=== PATIENT | female | born 1970 ===

== ENCOUNTER 2016-05-19 15:48 | Emergency (ER) | payer OTHER ==
[2016-05-19 15:56] VITALS: BP 137/93; PULSE 81; RESP 18; TEMP 97.7; O2SAT 98
--- NOTE | 2016-05-19 16:41 | ED PDOC ---
HPI: Back Time Seen by Provider: 05/19/16 16:29 Chief Complaint (Nursing): Back Pain Chief Complaint (Provider): Back Pain History Per: Patient History/Exam Limitations: no limitations Onset/Duration Of Symptoms: Days Current Symptoms Are (Timing): Still Present Quality Of Discomfort: "Pain" Severity: Mild Associated Symptoms: None Additional Complaint(s): Patient is a 45 year old female who presents to ED for back pain for 3 months. Patient states that the back pain radiates to the front, upper her chest into her head and out of her nose. Patient denies recent trauma, chest pain, SOB, abdominal pain, fever or chills. Patient denies SI or HI Past Medical History Reviewed: Historical Data, Nursing Documentation, Vital Signs Vital Signs: Last Vital Signs Temp 97.7 F 05/19/16 15:52 Pulse 81 05/19/16 15:52 Resp 18 05/19/16 15:52 BP 137/93 H 05/19/16 15:52 Pulse Ox 98 05/19/16 15:52 - Medical History PMH: No Chronic Diseases - Surgical History Surgical History: No Surg Hx - Family History Family History: States: Unknown Family Hx - Home Medications Home Medications: Ambulatory Orders Medication Instructions Recorded Naproxen [Naprosyn] 500 mg PO Q12H #20 tab 05/19/16 - Allergies Allergies/Adverse Reactions: Allergies Allergy/AdvReac Type Severity Reaction Status Date / Time No Known Allergies Allergy Verified 05/19/16 15:52 Review of Systems ROS Statement: Except As Marked, All Systems Reviewed And Found Negative Constitutional: Negative for: Fever, Weakness Cardiovascular: Negative for: Chest Pain, Palpitations Respiratory: Negative for: Shortness of Breath Gastrointestinal: Negative for: Nausea, Vomiting, Abdominal Pain Musculoskeletal: Positive for: Back Pain Physical Exam - Reviewed Nursing Documentation Reviewed: Yes Vital Signs Reviewed: Yes - Physical Exam Appears: Positive for: Non-toxic, No Acute Distress Skin: Positive for: Normal Color, Warm Eye Exam: Positive for: Normal appearance Neck: Positive for: Normal, Painless ROM Cardiovascular/Chest: Positive for: Regular Rate, Rhythm. Negative for: Murmur Respiratory: Positive for: Normal Breath Sounds. Negative for: Respiratory Distress Back: Positive for: Normal Inspection. Negative for: Vertebral Tenderness, Muscle Spasm Extremity: Positive for: Normal ROM. Negative for: Pedal Edema Neurologic/Psych: Positive for: Alert, Oriented, Mood/Affect (Bizarre affect ) - ECG O2 Sat by Pulse Oximetry: 98 (RA) Pulse Ox Interpretation: Normal Medical Decision Making Medical Decision Making: Time: 163 Initial impression: Back pain r/o psychiatric involvement Initial plan: -- Crisis evaluation Scribe Attestation: Documented by Delilah Fitzgerald acting as a scribe for Shravan Damian MD MD Scribe Attestation: All medical record entries made by the Scribe were at my direction and personally dictated by me. I have reviewed the chart and agree that the record accurately reflects my personal performance of the history, physical exam, medical decision making, and the department course for this patient. I have also personally directed, reviewed, and agree with the discharge instructions and disposition. Disposition - Clinical Impression Clinical Impression: Low back pain, Schizoaffective disorder - Patient ED Disposition Is Patient to be Admitted: No - Disposition Disposition: Routine/Home Disposition Time: 18:02 Condition: FAIR Prescriptions: Naproxen [Naprosyn] 500 mg PO Q12H #20 tab Instructions: Back Pain (ED), Schizoaffective Disorder (ED)
--- NOTE | 2016-05-20 09:12 | RAD ---
PROCEDURE: Radiographs of the Lumbar Spine. HISTORY: pain COMPARISON: No prior. FINDINGS: BONES: Normal alignment. No listhesis. No fracture. DISC SPACES: Unremarkable. OTHER FINDINGS: Right upper quadrant calcification projects over L1 vertebra in the lateral projection. Possible gallstone. IMPRESSION: Unremarkable lumbar spine. Possible cholelithiasis.
== END 2016-05-19 18:30 | disposition home or self-care (01) ==
LOC: H.ER 15:48
DX: M54.5 Low back pain (principal); F25.9 Schizoaffective disorder, unspecified

== ENCOUNTER 2016-05-22 08:49 | Inpatient (IN) | payer MEDICAID, OTHER ==
--- NOTE | 2016-05-22 09:39 | ED PDOC ---
HPI: Psych/Substance Abuse Time Seen by Provider: 05/22/16 09:22 Chief Complaint (Nursing): Psychiatric Evaluation Chief Complaint (Provider): Psychiatric Evaluation History Per: Patient History/Exam Limitations: no limitations Onset/Duration Of Symptoms: Days Current Symptoms Are (Timing): Still Present Suicide/Self Injury Attempted (Context): None Modifying Factor(s): None Associated Symptoms: Paranoia Involuntary Hold By: None Additional Complaint(s): Patient is a 45 year old female who presents to ED for evaluation of hearing voices. Patient states that she is hearing voices that angels are evil and feels like they are coming out of her mouth and nose. Denies SI or HI. Past Medical History Reviewed: Historical Data, Nursing Documentation, Vital Signs Vital Signs: Last Vital Signs Temp 98.4 F 05/22/16 09:03 Pulse 100 H 05/22/16 09:03 Resp 20 05/22/16 09:03 BP 160/100 H 05/22/16 09:03 Pulse Ox 99 05/22/16 09:03 - Medical History PMH: No Chronic Diseases Denies: Diabetes, Hepatitis, HIV, HTN, Seizures, Sexually Transmitted Disease - Surgical History Surgical History: No Surg Hx - Family History Family History: States: Unknown Family Hx - Home Medications Home Medications: Ambulatory Orders Medication Instructions Recorded Naproxen [Naprosyn] 500 mg PO Q12H #20 tab 05/19/16 - Allergies Allergies/Adverse Reactions: Allergies Allergy/AdvReac Type Severity Reaction Status Date / Time No Known Allergies Allergy Verified 05/19/16 15:52 Review of Systems ROS Statement: Except As Marked, All Systems Reviewed And Found Negative Constitutional: Negative for: Weakness Eyes: Negative for: Vision Change Cardiovascular: Negative for: Chest Pain Respiratory: Negative for: Shortness of Breath Neurological: Negative for: Weakness, Numbness Psych: Positive for: Psychosis Physical Exam - Reviewed Nursing Documentation Reviewed: Yes Vital Signs Reviewed: Yes - Physical Exam Appears: Positive for: Non-toxic, No Acute Distress Skin: Positive for: Normal Color, Warm Eye Exam: Positive for: Normal appearance, EOMI, PERRL Neck: Positive for: Normal Cardiovascular/Chest: Positive for: Regular Rate, Rhythm. Negative for: Murmur Respiratory: Positive for: Normal Breath Sounds. Negative for: Respiratory Distress Extremity: Positive for: Normal ROM Neurologic/Psych: Positive for: Alert, Oriented - Laboratory Results Result Diagrams: 05/22/16 10:21 05/22/16 10:21 - ECG O2 Sat by Pulse Oximetry: 99 (RA) Pulse Ox Interpretation: Normal Medical Decision Making Medical Decision Making: Time: 919 Initial impression: Psychiatric evaluation Initial plan: -- EKG -- Alcohol serum -- CMP -- UDS -- Urine preg -- Urine dip -- CBC -- CXR Medically stable for psychiatric admission Scribe Attestation: Documented by Delilah Fitzgerald acting as a scribe for Shravan Damian MD MD Scribe Attestation: All medical record entries made by the Scribe were at my direction and personally dictated by me. I have reviewed the chart and agree that the record accurately reflects my personal performance of the history, physical exam, medical decision making, and the department course for this patient. I have also personally directed, reviewed, and agree with the discharge instructions and disposition. Disposition - Clinical Impression Clinical Impression: Schizophrenia - Patient ED Disposition Is Patient to be Admitted: Yes - Disposition Disposition Time: 13:41 Condition: FAIR - Pt Status Changed To: Hospital Disposition Of: Inpatient - Admit Certification Admit to Inpatient:: After my assessment, the patient will require hospitalization for at least two midnights. This is because of the severity of symptoms shown, intensity of services needed, and/or the medical risk in this patient being treated as an outpatient. - POA Present On Arrival: None
--- NOTE | 2016-05-22 10:10 | RAD ---
HISTORY: cough COMPARISON: No prior. FINDINGS: LUNGS: Poor inspiration with low lung volumes, mild crowded bronchovascular markings and mild bibasilar atelectasis interstitial markings are slightly increased and coarsened as well possibly due to low lung volumes however the possibility of sequela of reactive/inflammatory airway disease or viral illness to be excluded. PLEURA: No significant pleural effusion identified, no pneumothorax apparent. CARDIOVASCULAR: Normal. OSSEOUS STRUCTURES: Questionable mild lumbar levoscoliosis versus side bending or spasm VISUALIZED UPPER ABDOMEN: Normal. OTHER FINDINGS: None. IMPRESSION: Poor inspiration with low lung volumes, mild crowded bronchovascular markings and mild bibasilar atelectasis interstitial markings are slightly increased and coarsened as well possibly due to low lung volumes however the possibility of sequela of reactive/inflammatory airway disease or viral illness to be excluded.
[2016-05-22 10:27] LABS: BASO # 0.1 K/uL (0.0-0.2); BASO % 0.6 % (0.0-2.0); EOS # 0.1 K/uL (0.0-0.7); EOS % 1.4 % (0.0-4.0); HEMATOCRIT 38.7 % (34.0-47.0); LYMPH # 1.6 K/uL (1.0-4.3); LYMPH % 16.6 % (20.0-40.0); MEAN CELL VOLUME 78.6 fl (81.0-99.0); MEAN CORPUSCULAR HEMOGLOBIN 26.1 pg (27.0-31.0); MEAN CORPUSCULAR HGB CONC 33.2 g/dL (33.0-37.0); MEAN PLATELET VOLUME 8.1 fl (7.2-11.7); MONO # 0.8 K/uL (0.0-0.8); NEUT # 6.9 K/uL (1.8-7.0); NEUT % 73.4 % (50.0-75.0); RED CELL DISTRIBUTION WIDTH 13.9 % (11.5-14.5); WHITE BLOOD COUNT 9.5 K/uL (4.8-10.8)
[2016-05-22 10:40] LABS: ALB/GLOB RATIO 1.1 (1.0-2.1); ALCOHOL SERUM < 10 mg/dl (0-10); ALKALINE PHOSPHATASE 91 U/L (38-126); ALT/SGPT 29 U/L (9-52); AST/SGOT 37 U/L (14-36); BILIRUBIN,TOTAL 0.6 mg/dl (0.2-1.3); BLOOD UREA NITROGEN 10 mg/dl (7-17); CALCIUM 9.5 mg/dL (8.4-10.2); CARBON DIOXIDE 24 mmol/L (22-30); CHLORIDE 106 mmol/L (98-107); GFR AFRICAN-AMERICAN > 60; GLUCOSE,RANDOM 108 mg/dL (65-105); POTASSIUM 4.1 MMOL/L (3.6-5.0); SODIUM 143 mmol/l (132-148); TOTAL PROTEIN 8.3 G/DL (6.3-8.2)
[2016-05-22] MEDS ORDERED: Alum-Mag Hydrox-Simethicone Susp (30 mL) PO PRN (15:57)
[2016-05-22] MEDS ORDERED: DiphenhydrAMINE 50 mg/ml Inj IM PRN (15:57)
--- NOTE | 2016-05-22 18:33 | CP.PCM.CON ---
History of Present Illness - History of Present Illness History of Present Illness: Reason for consult: per protocol HPI: 45 year old female with no past medical history is admitted to psych for hearing voices which she believes are evil. No other complaints at this time. No CP, dyspnea, n/v/c/d, no urinary sx, no abd pain. Vitals are stable, no acute distress. ROS: Per HPI, all other systems reviewed negative by me PMH: denies PSH: denies FH: denies SH: +tobacco about 10 cigarettes daily. Denies ETOH, IVDU. ALLERGIES: NKDA MEDICATIONS: reviewed and as below Temp Pulse Resp BP Pulse Ox 97.7 F 80 18 144/82 100 05/22/16 17:00 05/22/16 17:00 05/22/16 17:00 05/22/16 17:00 05/22/16 14:09 GENERAL APPEARANCE: Well developed, well nourished, appears to be in no acute distress. HEAD: normocephalic, atraumatic EYES: PERRL, EOMI. Vision is grossly intact. EARS: External auditory canals clear, hearing grossly intact. NOSE: No nasal discharge. THROAT: Oral cavity and pharynx normal. No inflammation, swelling, exudate, or lesions. NECK: Neck supple, non-tender without lymphadenopathy, masses or thyromegaly. CARDIAC: Normal S1 and S2. No S3, S4 or murmurs. Rhythm is regular. LUNGS: Clear to auscultation and percussion without rales, rhonchi, wheezing or diminished breath sounds. ABDOMEN: Positive bowel sounds. Soft, nondistended, nontender. No guarding or rebound. No masses. MUSKULOSKELETAL: Adequately aligned spine. ROM intact spine and extremities. BACK: Examination of the spine reveals no spinal deformity, symmetry of spinal muscles, EXTREMITIES: No significant deformity or joint abnormality. No edema. NEUROLOGICAL: CN II-XII intact. Strength and sensation symmetric and intact throughout. Reflexes 2+ throughout. SKIN: Skin normal color, texture and turgor with no lesions or eruptions. PSYCHIATRIC: The mental examination revealed the patient was oriented to person , place, and time. Normal affect. 05/22/16 10:21 05/22/16 10:21 ACTIVE MEDICATIONS Start Date/Time Active Medications 05/22/16 15:57 Acetaminophen [Tylenol 325mg tab] 650 mg PO Q4 PRN Aluminum Hydroxide/Magnesium [Maalox Plus 30 ml] 30 ml PO Q4 PRN DiphenhydrAMINE [Benadryl] 50 mg IM Q6 PRN DiphenhydrAMINE [Benadryl] 50 mg PO Q6 PRN Haloperidol Lactate [Haldol] 5 mg IM Q4 PRN Haloperidol [Haldol] 5 mg PO Q4 PRN LORazepam [Ativan] 2 mg IM Q4 PRN LORazepam [Ativan] 2 mg PO Q4 PRN Magnesium Hydroxide [Milk Of Magnesia] 30 ml PO HS PRN ASSESSMENT AND PLAN 45 year old female with no past medical history is admitted to psych for hearing voices which she believes are evil. No other complaints at this time. No CP, dyspnea, n/v/c/d. Vitals are stable, no acute distress. Schizophrenia Management per psychiatric team Past Patient History - Infectious Disease Hx of Infectious Diseases: None - Past Social History Smoking Status: Light Smoker < 10 Cigarettes Daily - CARDIAC Hx Cardiac Disorders: No - PULMONARY Hx Respiratory Disorders: No Hx Tuberculosis: No - NEUROLOGICAL Hx Neurological Disorder: No Hx Seizures: No - HEENT Hx HEENT Problems: No - RENAL Hx Chronic Kidney Disease: No - ENDOCRINE/METABOLIC Hx Endocrine Disorders: No - HEMATOLOGICAL/ONCOLOGICAL Hx Blood Disorders: No Hx Human Immunodeficiency Virus (HIV): No - INTEGUMENTARY Hx Dermatological Problems: No - MUSCULOSKELETAL/RHEUMATOLOGICAL Hx Back Pain: Yes - GASTROINTESTINAL Hx Gastrointestinal Disorders: No - GENITOURINARY/GYNECOLOGICAL Hx Genitourinary Disorders: No Hx Sexually Transmitted Disorders: No - PSYCHIATRIC Hx Physical Abuse: No Hx Schizophrenia: Yes Hx Sexual Abuse: No Hx Substance Use: No - SURGICAL HISTORY Hx Surgeries: No - ANESTHESIA Hx Anesthesia: No Meds Allergies/Adverse Reactions: Allergies Allergy/AdvReac Type Severity Reaction Status Date / Time No Known Allergies Allergy Verified 05/19/16 15:52 - Medications Medications: Current Medications Acetaminophen (Tylenol 325mg Tab) 650 mg PO Q4 PRN PRN Reason: Pain, moderate (4-7) Al Hydrox/Mg Hydrox/Simethicone (Maalox Plus 30 Ml) 30 ml PO Q4 PRN PRN Reason: Dyspepsia Diphenhydramine HCl (Benadryl) 50 mg PO Q6 PRN PRN Reason: Extrapyramidal Symptoms Diphenhydramine HCl (Benadryl) 50 mg IM Q6 PRN PRN Reason: Extrapyramidal S/S Unable PO Haloperidol (Haldol) 5 mg PO Q4 PRN PRN Reason: Agitation Haloperidol Lactate (Haldol) 5 mg IM Q4 PRN PRN Reason: Agitation, Unable to Take PO Lorazepam (Ativan) 2 mg PO Q4 PRN PRN Reason: Anxiety/Agitation Lorazepam (Ativan) 2 mg IM Q4 PRN PRN Reason: Anxiety/Agitation,Unable PO Magnesium Hydroxide (Milk Of Magnesia) 30 ml PO HS PRN PRN Reason: Constipation Results - Vital Signs Recent Vital Signs: Last Vital Signs Temp 97.7 F 05/22/16 17:00 Pulse 80 05/22/16 17:00 Resp 18 05/22/16 17:00 BP 144/82 05/22/16 17:00 Pulse Ox 100 05/22/16 14:09 - Labs Result Diagrams: 05/22/16 10:21 05/22/16 10:21
[2016-05-23 07:21] LABS: T4 10.4 ug/dl (5.5-11.0)
[2016-05-23 07:35] LABS: THYROID STIMULATING HORMONE 1.34 mIU/ML (0.46-4.68)
--- NOTE | 2016-05-23 09:50 | PCM.PSYCH ---
Initial Psychiatric Evaluation - Initial Psychiatric Evaluation Type of Admission: Voluntary Legal Status: Capacity Chief Complaint (in patient's own words): i don't need to be here Patient's Reaction to Hospitalization: ambivalent History of Present Illness and Precipitating Events: 45 yo female, homeless and recently came to [place] from [place]. pt states she lost her section 8 housing recently. she states she's been staying with her children but [facility]. per report she was brought to the ER after she was reporting that voices were telling her to leave the [facility]. apparently religiously preoccupied, bizarre. she states she was diagnosed with paranoid schizophrenia and kept at [facility] for a few weeks in the past, but states she has not taken medications for 2 years. she minimizes her symptoms and continues to repeat "i don't need to be here" she is worried she will lose her bed in the [facility]. she is giving verbal consent to contact her son. pt states she has 3 adult children. states she moved from [place] at age 7. she left school in 9th grade. she reports being in remedial classes. she reports she can read and write. Current Medications: Active Medications Generic Name Dose Route Start Last Admin Trade Name Freq PRN Reason Stop Dose Admin Acetaminophen 650 mg 05/22/16 15:57 Tylenol 325mg Tab PO Q4 PRN Pain, moderate (4-7) Al Hydrox/Mg Hydrox/Simethicone 30 ml 05/22/16 15:57 Maalox Plus 30 Ml PO Q4 PRN Dyspepsia Diphenhydramine HCl 50 mg 05/22/16 15:57 05/22/16 21:27 Benadryl PO 50 mg Q6 PRN Administration Extrapyramidal Symptoms Diphenhydramine HCl 50 mg 05/22/16 15:57 Benadryl IM Q6 PRN Extrapyramidal S/S Unable PO Haloperidol 5 mg 05/22/16 15:57 05/22/16 21:27 Haldol PO 5 mg Q4 PRN Administration Agitation Haloperidol Lactate 5 mg 05/22/16 15:57 Haldol IM Q4 PRN Agitation, Unable to Take PO Lorazepam 2 mg 05/22/16 15:57 Ativan PO Q4 PRN Anxiety/Agitation Lorazepam 2 mg 05/22/16 15:57 Ativan IM Q4 PRN Anxiety/Agitation,Unable PO Magnesium Hydroxide 30 ml 05/22/16 15:57 Milk Of Magnesia PO HS PRN Constipation Risperidone 2 mg 05/23/16 09:45 Risperdal M-Tab PO DAILY ARTI Past Psychiatric History - Past Psychiatric History Previous Treatment History: Inpatient Prior Professional Help: was seen a [facility] 2 years ago Prior Psychiatric Treatment: [facility]? History of Abuse: she is not directly answering this question History of ETOH/Drug Use: pt smokes cigarettes occasionally but can't quantify. she states "i am not an alcoholic" when asked about using alcohol. she denies other drug use. UDS is negative. History of Family Illness: denies Pertinent Medical Hx (Current Medical&Sleep Prob, Allergies): Allergies Allergy/AdvReac Type Severity Reaction Status Date / Time No Known Allergies Allergy Verified 05/19/16 15:52 Naproxen [Naprosyn] 500 mg PO Q12H #20 tab 05/19/16 Review of Systems - Psychiatric Psychiatric: As Per HPI Mental Status Examination - Personal Presentation Personal Presentation: Looks stated age - Affect Affect: Blunted - Motor Activity Motor Activity: Calm - Reliability in Providing Information Reliability in Providing Information: Poor, due to alteration in thoughts - Speech Speech: Organized - Mood Mood: Anxious - Formal Thought Process Formal Thought Process: Delusions (religiously preoccupied), Paranoia, Loosening of associations - Obsessions/Compulsions Obsessions: No Compulsions: No - Cognitive Functions Orientation: Person, Place, Situation, Time Sensorium: Alert Attention/Concentration: Attentive Abstract Thinking: [place] Estimate of Intelligence: Average Judgement: Intact, as evidence by: Insight regarding need for hospitalization Memory: Recent intact, as evidence by: Ability to recall events of the day, Remote intact, as evidenced by: Abilit to recall sig. life events - Risk Risk: Suicidal (denies suicidal thoughts. denies prior attempts. ), Diminished functioning - Strength & Assets Inventory Strength & Assets Inventory: Family support - Limitations Limitations: Other (homeless) DSM 5 DX - DSM 5 DSM 5 Diagnosis: schizophrenia, paranoid type - Recommended/Plan of Treatment Treatment Recommendations and Plan of Treatment: admit to [facility] for safety and observation gather collateral information provide supportive therapy adjust meds- agrees to start risperdal again hospitalist consult disposition planning Projected ELOS: 3-5 days Prognosis: fair - Smoking Cessation Smoking Cessation Initiated: Yes
[2016-05-23] MEDS: Risperidone M TAB 2 MG PO SCH (10:49)
--- NOTE | 2016-05-23 20:30 | CARD ---
APPROVED REPORT EKG Measurement Heart [id number] <Conclusion> Normal sinus rhythm Nonspecific T wave abnormality Abnormal ECG
[2016-05-24] MEDS: Risperidone M TAB 2 MG PO SCH (08:53)
[2016-05-24 16:32] VITALS: O2SAT 99
[2016-05-24] MEDS: Magnesium Hydroxide Susp 30 ml UD PO PRN (21:23)
--- NOTE | 2016-05-24 21:44 | PCM.PYCHPN ---
Psychiatric Progress Note - Psychiatric Progress Note Patient seen today, length of contact: chart review case discussed with team Patient Chief Complaint: seen in milieu, walking about in unit, at times speaking with peers, reports that has history of schizophrenia . reports has been living in between adult children and then left son's house because she did not what to become a burden, has been living in assisted in [place]-reports being on medications in past, with past admission in [facility]. reports that does not need higher doses of medications like before for the voices and paranoia-current doses are good-denies notable side effects. Problems Identified/Issues Discussed: alteration in thought decreased insight alteration in domicile Medical Problems: per chart Diagnostic Results: per psychiatry per medicine per nursing per social work per recreational therapy Medication Change: No Medical Record Reviewed: Yes Mental Status Examination - Cognitive Function Orientation: Person, Place, Situation, Time Attention: WNL Concentration: WNL Association: WNL Fund of Knowledge: Poor Decription of patient's judgement and insights: impaired - Mood Mood: Anxious - Affect Affect: Blunted - Formal Thought Process Formal Thought Process: Delusions (religiously preoccupied), Paranoia, Loosening of associations - Homicidal Ideation Homicidal Ideation: No Goal/Treatment Plan - Goal/Treatment Plan Need for Continued Stay: Remain at risks for inpatient hospitalization, Discharge may exacerbated symptoms, Failed transitioning Progress Toward Problem(s) and Goals/Treatment Plan: inpt milieu adjust meds per status discharge planning in progress - Smoking Cessation Smoking Cessation Initiated: No Reason for not providing: deferred
[2016-05-25] MEDS: Risperidone M TAB 2 MG PO SCH (10:09)
--- NOTE | 2016-05-25 18:22 | PCM.PYCHPN ---
Psychiatric Progress Note - Psychiatric Progress Note Patient seen today, length of contact: chart review case discussed with team Patient Chief Complaint: reports is feeling calmer, sleeping better, denies side effects Problems Identified/Issues Discussed: alteration in thought decreased insight alteration in domicile Medical Problems: per chart Diagnostic Results: per psychiatry per medicine per nursing per social work per recreational therapy DSM 5 Symptoms Update: paranoia, some isolation Medication Change: No Medical Record Reviewed: Yes Mental Status Examination - Cognitive Function Orientation: Person, Place, Situation, Time Attention: WNL Concentration: WNL Association: WNL Fund of Knowledge: Poor Decription of patient's judgement and insights: impaired - Mood Mood: Anxious - Affect Affect: Blunted - Formal Thought Process Formal Thought Process: Delusions (religiously preoccupied), Paranoia, Loosening of associations - Homicidal Ideation Homicidal Ideation: No Goal/Treatment Plan - Goal/Treatment Plan Need for Continued Stay: Remain at risks for inpatient hospitalization, Discharge may exacerbated symptoms, Failed transitioning Progress Toward Problem(s) and Goals/Treatment Plan: inpt milieu adjust meds per status discharge planning in progress Estimated Date of D/C: 05/30/16 - Smoking Cessation Smoking Cessation Initiated: No Reason for not providing: pt deferred
[2016-05-26] MEDS: Risperidone M TAB 2 MG PO SCH (09:42)
--- NOTE | 2016-05-26 20:40 | PCM.PYCHPN ---
Psychiatric Progress Note - Psychiatric Progress Note Patient seen today, length of contact: chart review case discussed with team Patient Chief Complaint: reports is feeling calmer, sleeping better, denies side effects , staff report pt has been adherent with treatment denies notable side effects Problems Identified/Issues Discussed: alteration in thought decreased insight alteration in domicile Medical Problems: per chart Diagnostic Results: per psychiatry per medicine per nursing per social work per recreational therapy DSM 5 Symptoms Update: paranoia resolving Medication Change: No Medical Record Reviewed: Yes Mental Status Examination - Cognitive Function Orientation: Person, Place, Situation, Time Attention: WNL Concentration: WNL Association: WNL Fund of Knowledge: Poor Decription of patient's judgement and insights: impaired - Mood Mood: Anxious - Affect Affect: Blunted - Formal Thought Process Formal Thought Process: Delusions (religiously preoccupied), Paranoia, Loosening of associations - Suicidal Ideation Suicidal Ideation: No - Homicidal Ideation Homicidal Ideation: No Goal/Treatment Plan - Goal/Treatment Plan Need for Continued Stay: Remain at risks for inpatient hospitalization, Discharge may exacerbated symptoms, Failed transitioning Progress Toward Problem(s) and Goals/Treatment Plan: inpt milieu adjust meds per status discharge planning in progress Estimated Date of D/C: 05/30/16 - Smoking Cessation Smoking Cessation Initiated: No Reason for not providing: deferred
[2016-05-26] MEDS: Magnesium Hydroxide Susp 30 ml UD PO PRN (21:48)
[2016-05-27] MEDS: Risperidone M TAB 2 MG PO SCH (09:29)
--- NOTE | 2016-05-27 13:02 | PCM.PYCHPN ---
Psychiatric Progress Note - Psychiatric Progress Note Patient seen today, length of contact: Patient evaluated, chart reviewed, case discussed with team. Patient Chief Complaint: "I'm okay" Problems Identified/Issues Discussed: Patient is calm and cooperative on the unit, but continues to be odd at times and internally preoccupied. She reports current paranoia about people who practice witchcraft and beliefs she is a target for sorcery and pentecostal. Denies AH/VH/depression/anxiety/neal. She also reports difficulty sleeping at night. She was agreeable to titration of Risperdal. DSM 5 Symptoms Update: Schizophrenia, paranoid type Medication Change: Yes (Increase Risperdal to 2 mg PO AM/ 1 mg PO HS; Trazodone 50 mg PO HS) Medical Record Reviewed: Yes Mental Status Examination - Cognitive Function Orientation: Person, Place, Situation, Time Memory: Intact Attention: WNL Concentration: WNL Association: WNL Fund of Knowledge: Poor - Mood Mood: Neutral - Affect Affect: Constricted - Speech Speech: Appropriate - Formal Thought Process Formal Thought Process: Delusions (religiously preoccupied), Paranoia, Loosening of associations Psychotic Thoughts and Behaviors: +Paranoid delusions - Suicidal Ideation Suicidal Ideation: No - Homicidal Ideation Homicidal Ideation: No Goal/Treatment Plan - Goal/Treatment Plan Need for Continued Stay: Remain at risks for inpatient hospitalization, Discharge may exacerbated symptoms, Failed transitioning Progress Toward Problem(s) and Goals/Treatment Plan: -Increase Risperdal to 2 mg PO AM/ 1 mg PO HS -Start Trazodone 50 mg PO HS -Individual, group and milieu tx Estimated Date of D/C: 05/31/16 - Smoking Cessation Smoking Cessation Initiated: Yes
[2016-05-28] MEDS: Risperidone M TAB 2 MG PO SCH (08:53)
--- NOTE | 2016-05-28 09:29 | PCM.PYCHPN ---
Psychiatric Progress Note - Psychiatric Progress Note Patient seen today, length of contact: Patient evaluated, chart reviewed, case discussed with team. Patient Chief Complaint: "I'm okay" Problems Identified/Issues Discussed: No significant events overnight. Patient continues to improve clinically. She denies acute concerns about zoroastrianism or witchcraft. She is goal oriented and hopeful for the future. Denies AH/VH/depression/anxiety/neal. She denies adverse effects to medications. Medication Change: No Medical Record Reviewed: Yes Mental Status Examination - Cognitive Function Orientation: Person, Place, Situation, Time Memory: Intact Attention: WNL Concentration: WNL Association: Loose Fund of Knowledge: WNL Decription of patient's judgement and insights: Improving I/J - Mood Mood: Neutral - Affect Affect: Constricted - Speech Speech: Appropriate - Formal Thought Process Formal Thought Process: Loosening of associations Psychotic Thoughts and Behaviors: She seems to be less paranoid, but continues to be loose on conversation - Suicidal Ideation Suicidal Ideation: No - Homicidal Ideation Homicidal Ideation: No Goal/Treatment Plan - Goal/Treatment Plan Need for Continued Stay: Remain at risks for inpatient hospitalization, Discharge may exacerbated symptoms, Failed transitioning Progress Toward Problem(s) and Goals/Treatment Plan: 45 yo female with schizophrenia, admitted due to acute decompensation, now improving clinically. -Continue Risperdal to 2 mg PO AM/ 1 mg PO HS -Continue Trazodone 50 mg PO HS -Individual, group and milieu tx Estimated Date of D/C: 05/31/16
[2016-05-29] MEDS: Risperidone M TAB 2 MG PO SCH (09:05)
[2016-05-29] MEDS: Magnesium Hydroxide Susp 30 ml UD PO PRN (17:37)
[2016-05-30] MEDS: Risperidone M TAB 2 MG PO SCH (09:37)
--- NOTE | 2016-05-30 10:46 | PCM.PYCHPN ---
Psychiatric Progress Note - Psychiatric Progress Note Patient seen today, length of contact: Patient evaluated, chart reviewed, case discussed with team. Patient Chief Complaint: "I'm okay" Problems Identified/Issues Discussed: No significant events overnight. Patient continues to improve clinically. She denies acute paranoia or psychosis. She is goal oriented and hopeful for the future. Denies AH/VH/depression/anxiety/neal. She denies adverse effects to medications. Medication Change: Yes (Change dosing time to Risperdal 3 mg PO Daily) Medical Record Reviewed: Yes Mental Status Examination - Cognitive Function Orientation: Person, Place, Situation, Time Memory: Intact Attention: WNL Concentration: WNL Association: Loose Fund of Knowledge: WNL Decription of patient's judgement and insights: Fair I/J - Mood Mood: Neutral - Affect Affect: Constricted - Speech Speech: Appropriate - Formal Thought Process Formal Thought Process: Loosening of associations Psychotic Thoughts and Behaviors: Denies AH/VH/paranoia. Continues to be loose and tangential at times, but this appears to be her baseline. - Suicidal Ideation Suicidal Ideation: No - Homicidal Ideation Homicidal Ideation: No Goal/Treatment Plan - Goal/Treatment Plan Need for Continued Stay: Remain at risks for inpatient hospitalization Progress Toward Problem(s) and Goals/Treatment Plan: 45 yo female with schizophrenia, admitted due to acute decompensation, now improving clinically. -Risperdal 3 mg PO Daily -Trazodone 50 mg PO HS -Individual, group and milieu tx -Discharge tomorrow if the patient continues to improve clinically Estimated Date of D/C: 05/31/16
--- NOTE | 2016-05-31 08:24 | PCM.PYCHDC ---
Mental Status Examination - Mental Status Examination Orientation: Person, Place, Situation, Time Memory: Intact Mood: Neutral Affect: Broad Speech: Appropriate Attention: WNL Concentration: WNL Association: Loose Fund of Knowledge: WNL Formal Thought Process: Loosening of associations Description of patient's judgement and insight: Fair I/J Psychotic Thoughts and Behaviors: Denies AH/VH/paranoia. Continues to be loose and tangential at times, but this appears to be her baseline. Suicidal Ideation: No Current Homicidal Ideation?: No Discharge Summary - Discharge Note Reason for Hospitalization: 45 yo female, homeless and recently came to [place] from [place]. pt states she lost her section 8 housing recently. she states she's been staying with her children but recently came to the jail. per report she was brought to the ER after she was reporting that voices were telling her to leave the jail. apparently religiously preoccupied, bizarre. she states she was diagnosed with paranoid schizophrenia and kept at [facility] for a few weeks in the past, but states she has not taken medications for 2 years. she minimizes her symptoms and continues to repeat "i don't need to be here" she is worried she will lose her bed in the jail. she is giving verbal consent to contact her son. pt states she has 3 adult children. states she moved from [place] at age 7. she left school in 9th grade. she reports being in remedial classes. she reports she can read and write. Consultations:: List each consultation separately and include: 1. Reason for request. 2. Findings. 3. Follow-up Consultations: Medicine consult Summary of Hospital Course include:: 1. Description of specific treatment plan utilized for patients during their course of treatmen. 2. Summarize the time- course for resolution of acute symptoms and/or regressed behaviors. 3. Describe issues identified and worked on during hospitalization. 4. Describe medication utilized. 5. Describe medical problems identified and treated. 6. Reassessment of suicide risk Summary of Hospital Course: Patient admitted to the hospital. She participated in group and individual therapy. She was stabilized on Risperdal 3 mg PO Daily. She denies current psychotic symptoms, but is loose and tangential at times, but this seems to be her baseline of functioning. - Final Diagnosis (DSM 5) Condition upon Discharge: FAIR DSM 5: Schizophrenia, paranoid type Disposition: HOME/ ROUTINE Follow-up Treatment Plan: 45 yo female with schizophrenia, admitted due to acute decompensation, now improved clinically, at her baseline of functioning. She is psychiatrically stable for discharge. -Risperdal 3 mg PO Daily -Trazodone 50 mg PO HS -Individual, group and milieu tx -Discharge today with outpatient follow-up Prescriptions/Medication Reconciliation: traZODone [Desyrel] 50 mg PO HS #30 tab risperiDONE [RisperDAL Tab] 3 mg PO DAILY #30 tab - Smoking Cessation Smoking Cessation Medication prescribed: Yes Reason for not providing: Given patch during admission, but does not to stop smoking at this time - Antipsychotic Medications Pt discharged on 2 or more routine antipsychotic medications: No
[2016-05-31 08:47] VITALS: BP 127/81; PULSE 92; RESP 20; TEMP 97.3
== END 2016-05-31 13:44 | disposition home or self-care (01) | DRG 430 ==
LOC: H.ER 08:49 → H.ERHOLD 13:42 → H.PSYCH 14:47
PROVIDERS: ADMIT Psychiatry & Neurology Psychiatry; ATTEND Psychiatry & Neurology Psychiatry
PROC: GZ51ZZZ Individual Psychotherapy, Behavioral (ICD-10-PCS; 2016-05-22)
PROC: GZHZZZZ Group Psychotherapy (ICD-10-PCS; principal; 2016-05-24)
DX: F20.0 Paranoid schizophrenia (principal); F17.210 Nicotine dependence, cigarettes, uncomplicated